=== PATIENT | male | born 1975 | race Asian ===

== ENCOUNTER 2024-09-24 15:53 | Emergency (ER) | payer BC ==
[~2024-09-24] VITALS: Ht 162.6 cm; Wt 92.7 kg
[2024-09-24 15:56] VITALS: TEMP 98.1
[2024-09-24] MEDS ORDERED: BUPR-345 PO (15:59)
[2024-09-24] MEDS ORDERED: ESZO2TAB46 PO (15:59)
[2024-09-24] MEDS: DiphenhydrAMINE HCL 50 MG/ML VIAL IVP ONE (17:35)
[2024-09-24] MEDS: FAMOTIDINE 20 MG TABLET PO ONE (17:36)
[2024-09-24] MEDS: MethylPREDNISolone SOD SUCC 125 MG/2 ML VIAL IVP ONE (17:36)
[2024-09-24 18:24] VITALS: BP 117/77; PULSE 86; RESP 18; O2SAT 98
[2024-09-24] MEDS ORDERED: PRED-554 PO (18:56)
[2024-09-24] MEDS ORDERED: FAMO20 PO (18:56)
[2024-09-24] MEDS ORDERED: DIPH50CA37 PO (18:56)
== END 2024-09-24 19:43 | disposition home or self-care (01) ==
LOC: EMS 15:56
DX: L50.0 Allergic urticaria (principal); F32.A Depression, unspecified; Z91.013 Allergy to seafood; Z79.899 Other long term (current) drug therapy
CPT/HCPCS: 99284; 96374; 96375; J2919; J1200